=== PATIENT | male | born 1985 | race Caucasian/White ===

== ENCOUNTER 2020-11-13 10:17 | Emergency (ER) | payer BC, OTHER ==
[~2020-11-13] VITALS: Ht 165.1 cm; Wt 83.5 kg
[2020-11-13 11:21] LABS: ABSOLUTE NEUTROPHILS 5.9 thou/uL (1.4-8.2); BASOPHILS 0.4 % (0.0-2.0); HEMATOCRIT 46.7 % (42.0-52.0); HEMOGLOBIN 16.2 gm/dL (14.0-18.0); LYMPHOCYTES 9.4 % (24.0-44.0); MCH 33.2 pg (26.0-34.0); MCHC 34.6 g/dL (28.0-37.0); MCV 95.9 fL (80.0-100.0); MONOCYTES 9.5 % (1.0-8.0); PLATELET COUNT 149 thou/uL (150-400); POLYS 78.7 % (36.0-66.0); RBC 4.87 mil/uL (4.50-6.00); RDW 12.9 % (10.5-14.5); WBC 7.5 thou/uL (4.0-11.0)
[2020-11-13 11:42] LABS: CALCIUM 8.8 mg/dL (8.5-10.1); CREATININE 0.9 mg/dL (0.7-1.3)
[2020-11-13 11:47] LABS: ALBUMIN 3.8 g/dL (3.4-5.0); TOTAL BILIRUBIN 0.3 mg/dL (0.2-1.0); TOTAL PROTEIN 7.7 g/dL (6.4-8.2)
[2020-11-13] MEDS ORDERED: NEXIUM40 MG PO (12:05)
[2020-11-13 12:15] VITALS: BP 133/89
== END 2020-11-13 12:17 | disposition home or self-care (01) ==
LOC: ER 10:17
PROVIDERS: Emergency Medicine
DX: K29.60 Other gastritis without bleeding (principal); Z90.49 Acquired absence of other specified parts of digestive tract

== ENCOUNTER 2021-05-14 11:11 | Emergency (ER) | payer OTHER ==
[~2021-05-14] VITALS: Ht 167.6 cm; Wt 81.7 kg
[~2021-05-14 11:11] MED LIST: NEXIUM40 MG PO
[2021-05-14 11:20] VITALS: BP 120/80
== END 2021-05-14 11:42 | disposition home or self-care (01) ==
LOC: ER 11:11
DX: U07.1 COVID-19 (principal); Z90.49 Acquired absence of other specified parts of digestive tract